=== PATIENT | male | born 1950 | race Caucasian/White ===

== ENCOUNTER 2019-07-05 03:21 | Inpatient (IN) ==
[2019-07-05] MEDS ORDERED: *HR* Ticagrelor 90 MG TABLET PO ONE (03:26)
[2019-07-05] MEDS ORDERED: *HR* Heparin 5,000 UNIT/ML VIAL IVP ONE (03:27)
[2019-07-05] MEDS ORDERED: *HR* Heparin 5,000 UNIT/ML VIAL ONE (03:34)
[2019-07-05] MEDS ORDERED: *HR* Ticagrelor 90 MG TABLET ONE (03:34)
[2019-07-05] MEDS ORDERED: Nitroglycerin 0.4 MG TAB.SUBL SL PRN (03:35)
[2019-07-05] MEDS ORDERED: 0.9 % Sodium Chloride 1,000 ML ONE ×3 (03:37→04:57)
[2019-07-05] MEDS ORDERED: Heparin 1,000 UNITS/500 mL 500 ML ONE (03:37)
[2019-07-05] MEDS ORDERED: *HR* Heparin 10,000 UNIT/10 ML VIAL ONE (03:37)
[2019-07-05] MEDS ORDERED: Nitroglycerin 1,000 MCG/10 ML VIAL IV ONE (03:37)
[2019-07-05] MEDS ORDERED: ISOVUE-370 200 ML INFUS..BTL ONE ×2 (03:37→04:20)
[2019-07-05] MEDS ORDERED: Nitroglycerin 0.4 MG TAB.SUBL SL ONE (03:41)
[2019-07-05 03:42] LABS: Basophils # 0.1 K/mcL (0.0-0.2); Basophils % 0.4 %; Eosinophils # 0.2 K/mcL (0.0-0.6); Eosinophils % 1.5 %; Hemoglobin 15.6 g/dL (12.9-16.9); Immature Granulocytes % 0.5 % (0-4); Lymphocytes # 4.3 K/mcL (0.6-4.6); Lymphocytes % 31.5 %; Mean Corpuscular HGB Conc 33.9 g/dL (31.6-35.5); Mean Corpuscular Hemoglobin 32.7 pg (28.0-33.3); Mean Corpuscular Volume 96.4 fL (83.0-100.0); Mean Platelet Volume 8.6 fL (9.4-12.4); Monocytes # 1.1 K/mcL (0.0-1.3); Monocytes % 8.4 %; Neutrophils # 7.9 K/mcL (1.6-8.9); Platelet Count 221 K/mcL (140-400); Red Blood Count 4.77 M/mcL (4.19-5.50); Red Cell Distribution Width 12.5 % (11.5-14.5); Segmented Neutrophils % 57.7 %; White Blood Count 13.6 K/mcL (4.3-11.1)
[2019-07-05] MEDS: Nitroglycerin 0.4 MG TAB.SUBL SL PRN ×2 (03:43→03:49)
[2019-07-05] MEDS ORDERED: 0.9 % Sodium Chloride 1,000 ML IVC SCH ×2 (03:45→05:30)
[2019-07-05] MEDS ORDERED: *HR* Midazolam HCl 2 MG/2 ML VIAL ONE (03:46)
[2019-07-05] MEDS ORDERED: *HR* Bivalirudin 250 MG VIAL IVC ONE ×2 (03:47→04:19)
[2019-07-05] MEDS ORDERED: *HR* FentaNYL (PF) 100 MCG/2 ML VIAL ONE (03:47)
[2019-07-05 03:56] LABS: Heparin anti-factor XA UFH 0.04 IU/mL (0.30-0.70); Prothrombin Time 11.4 Seconds (9.4-12.1)
[2019-07-05 03:59] LABS: Activated Partial Thrombo Time 28.8 Seconds (26.0-36.0)
[2019-07-05] MEDS ORDERED: Tirofiban 5 MG/100 mL 5 MG/100 ML VIAL IV ONE (04:47)
[2019-07-05 04:48] LABS: BUN/Creatinine Ratio 18 (6-26); Blood Urea Nitrogen 16 mg/dL (8-23); Calcium 9.5 mg/dL (8.6-10.3); Carbon Dioxide 22 mEq/L (23-29); Chloride 100 mEq/L (98-107); Glucose 201 mg/dL (70-105); Osmolality,Calculated 289 (280-300); Potassium 3.8 mEq/L (3.5-5.1); Sodium 136 mEq/L (136-145); eGFR For African Americans > 60 (> 60); eGFR For Non-African Americans > 60 (> 60)
[2019-07-05 05:01] LABS: Troponin I 0.07 ng/mL (< 0.04)
[2019-07-05] MEDS ORDERED: *HR* Dextrose 50 % in Water (Syg) 50 ML SYRINGE IVP PRN (05:16)
[2019-07-05] MEDS ORDERED: D5% in Water 1,000 ML IVC PRN (05:16)
[2019-07-05] MEDS ORDERED: Dextrose Gel 15 GM/37.5 ML TUBE PO PRN ×2 (05:16)
[2019-07-05 05:53] LABS: Estimated Average Glucose 126 mg/dl
[2019-07-05] MEDS: Insulin LISPRO 300 UNITS/3 ML VIAL SQ SCH ×3 (07:25→15:30)
[2019-07-05] MEDS ORDERED: *HR* Atropine Sulfate 1 MG/10 ML SYRINGE ONE (08:00)
[2019-07-05] MEDS: Aspirin 81 MG TAB.CHEW PO SCH (08:13)
[2019-07-05] MEDS ORDERED: Perflutren Lipid Microsphere 1.3 ML in 0.9 % Sodium Chloride 8.7 ML IVP ONE (09:25)
[2019-07-05] MEDS: *HR* Ticagrelor 90 MG TABLET PO SCH (15:32)
[2019-07-05] MEDS ORDERED: Melatonin 3 MG TABLET PO PRN (19:59)
[2019-07-06 06:08] LABS: Basophils # 0.1 K/mcL (0.0-0.2); Basophils % 0.3 %; Eosinophils % 0.1 %; Hematocrit 43.8 % (37.5-50.1); Immature Granulocytes % 0.5 % (0-4); Lymphocytes % 11.1 %; Mean Corpuscular HGB Conc 34.2 g/dL (31.6-35.5); Mean Corpuscular Hemoglobin 33.3 pg (28.0-33.3); Mean Corpuscular Volume 97.1 fL (83.0-100.0); Mean Platelet Volume 8.9 fL (9.4-12.4); Monocytes # 1.3 K/mcL (0.0-1.3); Monocytes % 7.3 %; Neutrophils # 14.3 K/mcL (1.6-8.9); Platelet Count 217 K/mcL (140-400); Red Blood Count 4.51 M/mcL (4.19-5.50); Red Cell Distribution Width 12.8 % (11.5-14.5); Segmented Neutrophils % 80.7 %; White Blood Count 17.7 K/mcL (4.3-11.1)
[2019-07-06 06:46] LABS: BUN/Creatinine Ratio 16 (6-26); Blood Urea Nitrogen 13 mg/dL (8-23); Calcium 9.1 mg/dL (8.6-10.3); Carbon Dioxide 22 mEq/L (23-29); Chloride 98 mEq/L (98-107); Chol/HDL Ratio 3.4 (0-4.9); Cholesterol 129 mg/dL (< 200); Glucose 151 mg/dL (70-105); HDL Cholesterol 38 mg/dL (40-59); LDL Cholesterol,Calculated 66 mg/dL (0-99); Osmolality,Calculated 275 (280-300); Potassium 4.1 mEq/L (3.5-5.1); Sodium 131 mEq/L (136-145); Triglycerides 125 mg/dL (< 150); Troponin I > 73.00 ng/mL (< 0.04); eGFR For African Americans > 60 (> 60); eGFR For Non-African Americans > 60 (> 60)
[2019-07-06] MEDS: Insulin LISPRO 300 UNITS/3 ML VIAL SQ SCH ×3 (07:29→16:35)
[2019-07-06] MEDS ORDERED: *HR* Heparin 5,000 UNIT/ML VIAL SQ SCH (07:30)
[2019-07-06] MEDS: Aspirin 81 MG TAB.CHEW PO SCH (07:33)
[2019-07-06] MEDS: *HR* Ticagrelor 90 MG TABLET PO SCH ×2 (07:33→20:35)
[2019-07-06] MEDS ORDERED: carvediloL 6.25 MG TABLET PO SCH (08:00)
[2019-07-06] MEDS ORDERED: Furosemide 40 MG/4 ML VIAL IVP ONE (09:52)
[2019-07-06] MEDS ORDERED: D5% in Water 1,000 ML IVC PRN (09:58)
[2019-07-06] MEDS ORDERED: Melatonin 3 MG TABLET PO PRN (09:58)
[2019-07-06] MEDS ORDERED: Nitroglycerin 0.4 MG TAB.SUBL SL PRN (09:58)
[2019-07-06] MEDS ORDERED: *HR* Dextrose 50 % in Water (Syg) 50 ML SYRINGE IVP PRN (09:58)
[2019-07-06] MEDS ORDERED: Dextrose Gel 15 GM/37.5 ML TUBE PO PRN ×2 (09:58)
[2019-07-06] MEDS: *HR* Heparin 5,000 UNIT/ML VIAL SQ SCH (16:35)
[2019-07-06] MEDS: carvediloL 6.25 MG TABLET PO SCH (16:35)
[2019-07-07 02:25] LABS: Basophils % 0.3 %; Eosinophils % 0.2 %; Hematocrit 36.8 % (37.5-50.1); Immature Granulocytes % 0.6 % (0-4); Lymphocytes # 3.4 K/mcL (0.6-4.6); Lymphocytes % 25.4 %; Mean Corpuscular HGB Conc 33.7 g/dL (31.6-35.5); Mean Corpuscular Hemoglobin 32.3 pg (28.0-33.3); Mean Corpuscular Volume 95.8 fL (83.0-100.0); Mean Platelet Volume 9.2 fL (9.4-12.4); Monocytes # 1.5 K/mcL (0.0-1.3); Monocytes % 11.2 %; Neutrophils # 8.4 K/mcL (1.6-8.9); Platelet Count 166 K/mcL (140-400); Red Blood Count 3.84 M/mcL (4.19-5.50); Red Cell Distribution Width 12.7 % (11.5-14.5); Segmented Neutrophils % 62.3 %; White Blood Count 13.5 K/mcL (4.3-11.1)
[2019-07-07 02:40] LABS: BUN/Creatinine Ratio 21 (6-26); Blood Urea Nitrogen 17 mg/dL (8-23); Calcium 8.6 mg/dL (8.6-10.3); Carbon Dioxide 23 mEq/L (23-29); Chloride 98 mEq/L (98-107); Glucose 125 mg/dL (70-105); Osmolality,Calculated 273 (280-300); Potassium 3.4 mEq/L (3.5-5.1); Sodium 130 mEq/L (136-145); eGFR For African Americans > 60 (> 60); eGFR For Non-African Americans > 60 (> 60)
[2019-07-07 02:48] LABS: Hemoglobin 12.4 g/dL (12.9-16.9)
[2019-07-07] MEDS: *HR* Heparin 5,000 UNIT/ML VIAL SQ SCH (06:12)
[2019-07-07 07:13] VITALS: BP 114/69
[2019-07-07] MEDS ORDERED: Aspirin 81 MG TAB.CHEW PO SCH (09:00)
[2019-07-07] MEDS: *HR* Ticagrelor 90 MG TABLET PO SCH (09:14)
[2019-07-07] MEDS: carvediloL 6.25 MG TABLET PO SCH (09:14)
[2019-07-07] MEDS: Insulin LISPRO 300 UNITS/3 ML VIAL SQ SCH ×2 (09:17→12:13)
[2019-07-07] MEDS ORDERED: Furosemide 20 MG TABLET PO PRN (10:18)
== END 2019-07-07 13:09 | disposition home or self-care (01) | DRG 247 ==
LOC: EMEROOARM 03:21 → ICNU 03:58 → 2NNU 07-06 14:28
PROVIDERS: ADMIT Internal Medicine Interventional Cardiology; ATTEND Internal Medicine Clinical Cardiac Electrophysiology